=== PATIENT | female | born 1945 | race Two or more races ===

== ENCOUNTER 2019-12-13 09:56 | Outpatient (CLI) | payer OTHER | END 2019-12-13 09:59 | disposition home or self-care (01) | LOC: SONOGRAMA 09:56 | DX: E04.2 Nontoxic multinodular goiter (principal) ==

== ENCOUNTER 2020-05-01 09:16 | Outpatient (CLI) | payer OTHER | END 2020-05-01 09:19 | disposition home or self-care (01) | LOC: SONOGRAMA 09:16 | PROVIDERS: ATTEND Emergency Medicine | DX: E04.2 Nontoxic multinodular goiter (principal) ==

== ENCOUNTER 2020-05-02 10:01 | Outpatient (CLI) | payer OTHER | END 2020-05-02 13:31 | disposition home or self-care (01) | LOC: NUCLEAR 10:01 | PROVIDERS: ATTEND Internal Medicine | DX: R01.1 Cardiac murmur, unspecified (principal); I47.1 Supraventricular tachycardia; I10 Essential (primary) hypertension; I71.2 Thoracic aortic aneurysm, without rupture ==

== ENCOUNTER 2024-02-16 14:31 | Outpatient (CLI) | payer OTHER | END 2024-02-16 14:34 | disposition home or self-care (01) | LOC: SONOGRAMA 14:31 | PROVIDERS: ATTEND Pathology Anatomic Pathology & Clinical Pathology | DX: D34 Benign neoplasm of thyroid gland (principal); E06.3 Autoimmune thyroiditis; E04.2 Nontoxic multinodular goiter ==